=== PATIENT | female | born 1955 | race Caucasian/White ===

== ENCOUNTER 2021-03-09 12:57 | Outpatient (CLI) | payer OTHER, SELFPAY ==
--- NOTE | 2021-03-09 14:02 | MR_ITS ---
WS: [id number] MRI LEFT SHOULDER NONCONTRAST TECHNIQUE: Sagittal T2, coronal T1, T2 and proton density imaging. Axial gradient PDE imaging. CLINICAL INFORMATION: LEFT SHOULDER PAIN, UNSPECIFIED CHRONICITY COMPARISON: Mild degenerative arthritis at the AC joint. Mild downsloping of the acromion. Moderate d egenerative arthritis at the glenohumeral joint. Trace subacromial/subdeltoid fluid. Normal bone michael ow signal in the humerus and bony glenoid. Distal supraspinatus is normal. Normal infraspinatus. Normal teres minor and subscapularis. No acute rotator cuff tears. Degenerative fraying of the glenoid labrum. Glenoid labrum appears grossly unremarkable. Normal bicep s tendon in the bicipital groove. Normal biceps labral anchor. MR/MR shoulder LT wo con* [id number] IMPRESSION: 1. Mild degenerative arthritis AC joint with mild downsloping acromion. Small amount of subacromial/subdeltoid fluid. 2. Rotator cuff is normal in appearance. No acute appearing rotator cuff tears . 3. Normal biceps tendon in the bicipital groove. Normal biceps labral anchor. 4. Normal bone marrow signal in the humerus and bony glenoid.
== END 2021-03-09 12:58 | disposition home or self-care (01) ==
PROVIDERS: Visit Provider Nurse Practitioner Family
DX: M25.512 Pain in left shoulder (principal); M19.012 Primary osteoarthritis, left shoulder
CPT/HCPCS: 73221

== ENCOUNTER → 2023-11-16 09:57 | Outpatient (BNVA) | payer MEDICARE, OTHER, SELFPAY | PROVIDERS: Visit Provider Nurse Practitioner Family | DX: D48.5 Neoplasm of uncertain behavior of skin (principal); L57.0 Actinic keratosis; D23.9 Other benign neoplasm of skin, unspecified; D18.01 Hemangioma of skin and subcutaneous tissue; L57.8 Other skin changes due to chronic exposure to nonionizing radiation | CPT/HCPCS: 11102; 17000; 99203 ==

== ENCOUNTER → 2023-12-08 13:51 | Outpatient (BNVA) | payer MEDICARE, OTHER, SELFPAY | PROVIDERS: Visit Provider Specialist | DX: R20.0 Anesthesia of skin (principal); M79.604 Pain in right leg; R20.2 Paresthesia of skin | CPT/HCPCS: 95910 ==

== ENCOUNTER 2024-01-31 20:00 | Outpatient (CLI) | payer MEDICARE, OTHER, SELFPAY | END 2024-01-31 20:01 | disposition home or self-care (01) | LOC: SLEEP 02-01 06:32 | PROVIDERS: Visit Provider Nurse Practitioner Family | DX: G47.10 Hypersomnia, unspecified (principal) | CPT/HCPCS: 95810 ==

== ENCOUNTER → 2024-05-16 13:34 | Outpatient (BNVA) | payer MEDICARE, OTHER, SELFPAY | PROVIDERS: Visit Provider Nurse Practitioner Family | DX: L57.0 Actinic keratosis (principal); D23.9 Other benign neoplasm of skin, unspecified; L57.8 Other skin changes due to chronic exposure to nonionizing radiation; L81.4 Other melanin hyperpigmentation; L85.3 Xerosis cutis; L82.1 Other seborrheic keratosis; D48.5 Neoplasm of uncertain behavior of skin; B00.1 Herpesviral vesicular dermatitis | CPT/HCPCS: 17000; 99213 ==